=== PATIENT | male | born 1955 | race Caucasian/White ===

== ENCOUNTER 2018-05-24 14:26 | Day surgery (SDC) | payer OTHER ==
[2018-05-24] MEDS ORDERED: ceFAZolin 2 GM/DEXTROSE 100 ML IV ONE ×2 (14:56→17:23)
[2018-05-24] MEDS ORDERED: fentaNYL 100 MCG/2 ML INJ IVP ONE (14:56)
--- NOTE | 2018-05-24 16:46 | EDPHY ---
H & P Stated Complaint: Slipped on ice and caught the top of his hand on table saw. [place] - Personal History Current Tetanus Diphtheria and Acellular Pertussis (TDAP): Yes - Medical/Surgical History Hx Asthma: No Hx Chronic Respiratory Disease: No Hx Diabetes: No Hx Cardiac Disease: Yes Hx Renal Disease: No Hx Cirrhosis: No Hx Alcoholism: No Hx HIV/AIDS: No Hx Splenectomy or Spleen Trauma: No Other PMH: HTN - Social History Smoking Status: Former smoker Time Seen by Provider: 05/24/18 14:47 HPI/ROS: Chief complaint: Left hand lacerations History of present illness: This is a 63-year-old male who presents to the emergency department for lacerations to his left hand. He was cutting wood with a table saw when he slipped on ice in his left hand struck the saw. He has noted lacerations to the 1st, 2nd, 3rd and 4th digit. He reports severe pain. Bleeding has been controlled with application of a dressing. His tetanus is up-to-date. He denies other injuries. Review of systems: A 10 point review of systems was obtained and other than described above was negative (Marcus David) - Physical Exam Exam: General Appearance: Alert, appears in pain. Eyes: Pupils equal and round no injection. Respiratory: Chest is non tender, lungs are clear to auscultation. Cardiovascular: Regular rate and rhythm. Radial pulses 2+. Capillary refill brisk in all digits of the left hand. Musculoskeletal: Patient cannot flex or extend his left pointer finger. He is flexing and extending his other fingers left hand. Skin: Patient has extensive lacerations to his 1st, 2nd, 3rd and 4th digits of the left hand. Neurological: Patient has loss of sensation over the ulnar surface of the pointer finger. Light touch sensation intact in all other fingers. (Marcus David) Constitutional: Initial Vital Signs Temperature (C) 36.9 C 05/24/18 14:34 Heart Rate 93 05/24/18 14:34 Respiratory Rate 22 H 05/24/18 14:34 Blood Pressure 182/101 H 05/24/18 14:34 O2 Sat (%) 95 05/24/18 14:34 O2 Delivery Mode Room Air O2 (L/minute) 8 Allergies/Adverse Reactions: No Known Allergies Allergy (Unverified 06/09/10 14:50) Home Medications: Medication Instructions Recorded Acetaminophen [Tylenol 325mg (*)] 650 mg PO Q6HRS tab 05/24/18 Lisinopril 05/24/18 Medical Decision Making - Diagnostics Imaging: I viewed and interpreted images myself - Diagnostics Imaging Results: Imaging Impressions Hand X-Ray 05/24/18 14:53 Impression: Osseous and/or soft tissue injuries involving the second, third, and fourth digits as above-detailed, with the greatest degree of involvement in the index finger near the PIP joint. ED Course/Re-evaluation: Patient seen in conjunction with my secondary supervising physician Dr. Aleksander Diaz. Patient presents to the emergency department for severe lacerations to his left hand. He does appear to have some neurologic compromise. He was given fentanyl 100 mcg IV as well as digital blocks with Marcaine without epinephrine. He had good pain control. His tetanus was already up-to-date. He was given [address]f IV[address] Dr[address] Tereso Quispe, hand surgeon was consulted, he has seen the patient in the emergency department and will take him to the OR for definitive care. Plan has been discussed with the patient voiced understanding and agreement with it. (Marcus David) I also saw the patient in the emergency department. I reviewed the history with the patient of using table saw. Examination shows multiple finger lacerations worse being an open fracture of the index finger at the D IP joint. We discussed pain control as well as antibiotics. I agree with treatment plan and management (Aleksander Diaz) Differential Diagnosis: Included but not limited to superficial lacerations, deep structure injury, fracture, foreign body contamination (Marcus David) - Data Points Medications Given: Acetaminophen (Tylenol) 650 mg PO Q6HRS [facility] Stop: 11/20/18 17:59 Last Admin: 05/24/18 20:22 Dose: 650 mg Discontinued Medications Bupivacaine HCl (Sensorcaine 0.25% Sdv) Confirm Administered Dose 30 ml .ROUTE .STK-MED ONE Stop: 05/24/18 17:01 Last Admin: 05/24/18 18:29 Dose: 10 ml Cefazolin Sodium (Ancef Syringe) Confirm Administered Dose 1 gm .ROUTE .STK-MED ONE Stop: 05/24/18 18:13 Last Admin: 05/24/18 18:29 Dose: 1 gm Fentanyl (Sublimaze) 100 mcg IVP EDNOW ONE Stop: 05/24/18 14:57 Last Admin: 05/24/18 15:05 Dose: 100 mcg Cefazolin Sodium/Dextrose (Ancef) 100 mls @ 200 mls/hr IV EDNOW ONE PRN Reason: Protocol Stop: 05/24/18 15:25 Last Admin: 05/24/18 15:06 Dose: 100 mls Cefazolin Sodium/Dextrose (Ancef) 100 mls @ 200 mls/hr IV ONCALL ONE PRN Reason: Protocol Stop: 05/24/18 17:52 Last Admin: 05/24/18 18:14 Dose: 100 mls Midazolam HCl (Versed) 2 mg IVP ONCALL ONE Stop: 05/24/18 17:48 Last Admin: 05/24/18 17:51 Dose: 2 mg Oxycodone HCl (Oxycodone Ir) 5 - 10 mg PO Q4HRS PRN PRN Reason: PACU, Pain Severe Stop: 05/24/18 20:32 Last Admin: 05/24/18 20:23 Dose: 5 mg Departure - Departure Disposition: [facility] Clinical Impression: Finger laceration involving tendon Qualifiers: Encounter type: initial encounter Qualified Code(s): S61.219A - Laceration without foreign body of unspecified finger without damage to nail, initial encounter Condition: Good
[2018-05-24] MEDS ORDERED: BUPIVACAINE 0.25% 30 ML SDV ONE (17:00)
[2018-05-24] MEDS ORDERED: PROMETHAZINE HCL 25 MG SUPPR PR PRN (17:26)
[2018-05-24] MEDS ORDERED: PROMETHAZINE HCL 25 MG/ML INJ IVP PRN (17:26)
[2018-05-24] MEDS ORDERED: diphenhydrAMINE 25 MG CAP PO PRN (17:26)
[2018-05-24] MEDS ORDERED: oxyCODONE IR 5 MG TAB PO PRN ×2 (17:26→19:32)
[2018-05-24] MEDS ORDERED: METOCLOPRAMIDE 10 MG/2 ML VIAL IVP PRN (17:26)
[2018-05-24] MEDS ORDERED: CYCLOBENZAPRINE 10 MG TAB PO PRN (17:26)
[2018-05-24] MEDS ORDERED: ONDANSETRON 4 MG/2 ML VIAL IVP PRN ×2 (17:26→19:32)
[2018-05-24] MEDS ORDERED: DIPHENOXYLATE/ATROPINE LOMOTIL 1 TAB PO PRN (17:26)
[2018-05-24] MEDS ORDERED: TEMAZEPAM 15 MG CAP PO PRN (17:26)
[2018-05-24] MEDS ORDERED: ONDANSETRON DISINTEGRATING 4 MG TAB PO PRN (17:26)
[2018-05-24] MEDS ORDERED: D5W 1/2 NS 1,000 ML IV SCH (17:30)
[2018-05-24] MEDS ORDERED: LR 1,000 ML IV ONE (17:41)
--- NOTE | 2018-05-24 17:45 | PDANEPAE ---
ANE History of Present Illness open repair of L 2 finger PIP joint fracture ANE Past Medical History - Cardiovascular History Hx Hypertension: Yes Hx Arrhythmias: No Hx Chest Pain: No Hx Coronary Artery / Peripheral Vascular Disease: No Hx CHF / Valvular Disease: No Hx Palpitations: No Cardiovascular History Comment: pt. reports he is not currently taking his BP med (Lisinopril) - Pulmonary History Hx COPD: No Hx Asthma/Reactive Airway Disease: No Hx Recent Upper Respiratory Infection: No Hx Oxygen in Use at Home: No Hx Sleep Apnea: No - Endocrine History Hx Diabetes: No Hypothyroid: No Hyperthyroid: No Obesity: mild - Renal History Hx Renal Disorders: Yes Renal History Comment: kidney stones - Liver History Hx Hepatic Disorders: No - Neurological & Psychiatric Hx Hx Neurological and Psychiatric Disorders: No - Cancer History Hx Cancer: No - GI History GERD: no Hx Gastrointestinal Disorders: No - Surgical History Prior Surgeries: lithotripsy x3. TURP ANE Review of Systems Review of Systems: - Exercise capacity METS (RN): 4 METS ANE Patient History - Allergies Allergies/Adverse Reactions: No Known Allergies Allergy (Unverified 10/15/09 14:50) - Home Medications Home Medications: Lisinopril 05/24/18 [Last Taken Unknown] - NPO status NPO Since - Liquids (Date): 05/24/18 NPO Since - Liquids (Time): 12:30 NPO Since - Solids (Date): 05/24/18 NPO Since - Solids (Time): 12:30 - Anes Hx Anes Hx: no prior problems (4 drinks/week) - Smoking Hx Smoking Status: Former smoker Marijuana use: No - Alcohol Use Alcohol Use: Other (4 drinks/week) - Family Anes Hx Family Anes Hx: none ANE Labs/Vital Signs - Vital Signs Blood Pressure: 173/105 Heart Rate: 85 Respiratory Rate: 16 O2 Sat (%): 94 Height: 187.96 cm Weight: 106.594 kg ANE Physical Exam - Airway Neck exam: FROM Mallampati Score: Class 1 Mouth exam: poor dentition - Pulmonary Pulmonary: clear to auscultation - Cardiovascular Cardiovascular: regular rate and rhythym - ASA Status ASA Status: II, E ANE Anesthesia Plan Anesthesia Plan: general endotracheal anesthesia
[2018-05-24] MEDS ORDERED: MIDAZOLAM 2 MG/2 ML VIAL ONE (17:46)
[2018-05-24] MEDS ORDERED: MIDAZOLAM 2 MG/2 ML VIAL IVP ONE (17:47)
[2018-05-24] MEDS ORDERED: ROCURONIUM 50 MG/5 ML VIAL ONE (17:50)
[2018-05-24] MEDS ORDERED: PROPOFOL 200 MG/20 ML VIAL ONE (17:50)
[2018-05-24] MEDS ORDERED: fentaNYL 250 MCG/5 ML INJ ONE (17:50)
[2018-05-24] MEDS ORDERED: ACETAMINOPHEN 325 MG TAB PO SCH (18:00)
[2018-05-24] MEDS ORDERED: ceFAZolin 1 GM/5 ML SYR ONE (18:12)
[2018-05-24] MEDS ORDERED: ceFAZolin 1 GM VIAL ONE (18:13)
[2018-05-24] MEDS ORDERED: PHENYLEPHRINE HCL 100 MCG/ML SYR ONE (18:14)
--- NOTE | 2018-05-24 18:25 | GHP ---
DATE OF ADMISSION: 05/24/2018 ADMITTING DIAGNOSES: 1. Multiple finger lacerations. 2. Open kerf injury from saw through PIP joint, left 2nd finger. 3. 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 HISTORY OF PRESENT ILLNESS: Patient is a 63-year-old gentleman who was operating a table saw and was on uneven ground. He inadvertently caught his hand within the saw blade. There were 4 lacerations; 1 across the tip of the thumb, 2nd across the tip of the 4th finger. Both of these have nail matrix injuries. The 3rd finger has a significant laceration on the volar aspect, and the 2nd finger has a severe laceration going through the ulnar and volar aspect through the PIP joint with neurovascular bundle involvement. PAST MEDICAL HISTORY: None. ALLERGIES: None. MEDICATIONS: Lisinopril and acetaminophen. REVIEW OF SYSTEMS: Positive for hypertension. Negative for diabetes, asthma, respiratory heart dise ase. EXAMINATION: GENERAL: Patient alert, oriented, cooperative with exam. CHEST: Clear to auscultatio n. CARDIAC: Regular rate and rhythm. ABDOMEN: Nontender. HAND: Examination of left hand as desc ribed above. PLAN: Patient is admitted for debridement of multiple open lacerations to the fingers, repair of denise l matrices, possible repair of flexor tendon to the 3rd finger, or repair of flexor tendons and kerf injury with fusion of the proximal interphalangeal joint of the 2nd finger. /[id number]/MODL
[2018-05-24] MEDS ORDERED: GLYCOPYRROLATE 0.2 MG/1 ML VIAL ONE (19:27)
[2018-05-24] MEDS ORDERED: NEOSTIGMINE METHYLSULFATE 5 MG/5 ML SYR ONE (19:27)
[2018-05-24] MEDS ORDERED: NALOXONE HCL 0.4 MG/ML INJ IVP PRN (19:32)
[2018-05-24] MEDS ORDERED: fentaNYL 100 MCG/2 ML INJ IVP PRN (19:32)
[2018-05-24] MEDS ORDERED: HYDROmorphONE/DILAUDID 2 MG/ML INJ IVP PRN (19:32)
--- NOTE | 2018-05-24 19:53 | POSTANESTH ---
Post Anesthetic Evaluation Cardiovascular Status: Similar to Pre-Op Cond Respiratory Status: Normal, Stable Level of Consciousness/Mental Status: Can Participate in Eval Pain Control: Adequate, Prn Tx Ordered Nausea/Vomiting Control: Adequate, Prn Tx Ordered Complications Possibly Related to Anesthesia: None Noted
[2018-05-24] MEDS ORDERED: ACETAMINOPHEN 325 MG TAB ONE (20:15)
[2018-05-24] MEDS ORDERED: oxyCODONE IR 5 MG TAB ONE (20:15)
[2018-05-24] MEDS ORDERED: FAMOTIDINE 20 MG TAB PO SCH (21:00)
[2018-05-24 21:21] VITALS: BP 146/84
--- NOTE | 2018-05-25 06:14 | GOP ---
DATE OF OPERATION: 05/24/2018 SURGEON: Tereso Quispe MD ANESTHESIA: General. PREOPERATIVE DIAGNOSIS: 1. Left 2nd finger open fracture of the proximal and middle phalanges. 2. Left 4th finger nail matrix, nailbed laceration and finger laceration. 3. Left 3rd finger laceration to the finger tip extending into the ulnar border of finger. 4. Laceration, left thumb tip. POSTOPERATIVE DIAGNOSIS: PROCEDURE PERFORMED: 1. Debridement open fractures, left 2nd finger proximal and middle phalanges. 2. Open reduction, internal fixation, comminuted fracture, middle phalanx. 3. Repair nail matrix, left 4th finger tip with removal of nail. 4. Repair laceration, left 3rd finger. 5. Repair laceration, left thumb. FINDINGS: DESCRIPTION OF PROCEDURE: Patient taken the operating room, administered general anesthesia, placed in supine position. Left upper extremity was prepped and draped in normal sterile fashion. Our attention was directed to the 4th fingertip. The nail was removed. The nail matrix was repaired with 6-0 nylon suture after thoroughly cleansing the nail bed. The eponychial fold was then repaire d with a 5-0 nylon. Our attention was then directed to the 2nd finger. This was the most severely involved finger. Ther e was digital neurovascular injury to the ulnar border that was not repairable as the soft tissues we re extremely macerated. The 2nd finger proximal phalanx had a injury into the articular s urface of the PIP articulation. There was extensive comminution of the middle phalanx. Several bone fragments had to be removed. The joint was thoroughly lavaged. The remaining bone fragments were t horoughly lavaged. A K-wire was then drilled from the tip of the finger tip across the distal phalan x, across the distal interphalangeal joint, across the comminuted middle phalanx fracture across, the PIP joint to maintain extension and alignment. Attempts to fixate any of the other smaller comminut ed fractures of the middle phalanx were not possible. We, therefore, just reapproximated the bone fr agments as best possible and closed the soft tissues around them. The neurovascular bundle was not r epairable. The flexor digitorum sublimis tendon we felt was still partially intact. The flexor digi torum longus tendon we felt it was still partially intact. The thumb tip was then repaired where there was a flap on the volar side. This was just cleansed and reapposed with 5-0 nylon suture. The 3rd finger tip injury was then repaired with 5-0 nylon suture after thoroughly cleansing it. We subsequently applied a sterile compression dressing on each finger and a splint around the 2nd finger where the phalangeal fractures were. Patient tolerated procedure well and was transferred back to recovery in stable condition. No complications. COMPLICATIONS: None. /[id number]/MODL
== END 2018-05-24 21:30 | disposition home or self-care (01) ==
LOC: FSGY 17:18
PROVIDERS: ATTEND Orthopaedic Surgery Sports Medicine
DX: S62.623B Displaced fracture of middle phalanx of left middle finger, initial encounter for open fracture (principal); S62.613B Displaced fracture of proximal phalanx of left middle finger, initial encounter for open fracture; S61.215A Laceration without foreign body of left ring finger without damage to nail, initial encounter; S61.012A Laceration without foreign body of left thumb without damage to nail, initial encounter; W31.2XXA Contact with powered woodworking and forming machines, initial encounter; Y93.H3 Activity, building and construction; Y99.0 Civilian activity done for income or pay; Y92.9 Unspecified place or not applicable; I10 Essential (primary) hypertension; F17.210 Nicotine dependence, cigarettes, uncomplicated
CPT/HCPCS: 96365; C1713; J0690; J2250; J2370; J2704; J2710; J3010